=== PATIENT | female | born 1950 ===

== ENCOUNTER 2018-03-12 14:55 | Outpatient (REF) | payer MEDICARE, MEDICAID, SELFPAY ==
[2018-03-12 21:33] LABS: Anion Gap 10.6 mmol/L (3-11); BUN 15 mg/dL (7-18); CO2 24.4 mmol/L (21.0-32.0); CREATININE 0.69 mg/dL (0.55-1.02); Calcium 9.1 mg/dL (8.5-10.1); Chloride 103 mmol/L (98-107); Glucose 98 mg/dL (70-100); Potassium 4.1 mmol/L (3.5-5.1); Sodium 138 mmol/L (136-145)
== END 2018-03-12 14:56 ==
LOC: NCHCN 14:55
PROVIDERS: PCP Internal Medicine; Visit Provider Registered Nurse
DX: I10 Essential (primary) hypertension (principal)
CPT/HCPCS: 80048

== ENCOUNTER 2019-09-21 13:17 | Outpatient (REF) | payer MEDICARE, MEDICAID, SELFPAY ==
[2019-09-21 21:54] LABS: HCT 40.9 % (36.0-46.0); HGB 13.7 g/dL (12.0-15.5); Mean Corp. HGB Concentration 33.5 g/dL (32.0-36.0); Mean Corpuscular Hemoglobin 29.7 pg (27.0-33.0); Mean Corpuscular Volume 88.7 fL (80-95); Mean Platelet Volume 9.8 fL (8.0-11.0); Platelet Count 410 x1000/uL (130-400); RBC 4.61 m/cumm (4.00-5.20); White Blood Cell Count 7.77 k/cumm (4.4-10.8)
[2019-09-21 22:12] LABS: ALT 19 U/L (14-59); AST 19 U/L (15-37); Albumin 3.7 g/dL (3.4-5.0); Alkaline Phosphatase 118 U/L (46-116); Anion Gap 8.8 mmol/L (3-11); BUN 18 mg/dL (7-18); Bilirubin, Total 0.3 mg/dL (0.2-1.0); CO2 27.2 mmol/L (21.0-32.0); CREATININE 0.67 mg/dL (0.55-1.02); Chloride 104 mmol/L (98-107); Glucose 97 mg/dL (74-106); NT-proBNP 138 pg/mL (<300); Potassium 4.1 mmol/L (3.5-5.1); Sodium 140 mmol/L (136-145); TSH 1.86 uIU/mL (0.36-3.74); Total Protein 7.6 g/dL (6.4-8.2)
== END 2019-09-21 13:37 ==
LOC: NCHCN 13:17
PROVIDERS: PCP Internal Medicine; Visit Provider Registered Nurse
DX: I10 Essential (primary) hypertension (principal); R06.02 Shortness of breath
CPT/HCPCS: 80053; 85027; 83880; 84443

== ENCOUNTER 2019-10-02 20:29 | Outpatient (REF) | payer MEDICARE, MEDICAID, SELFPAY ==
[2019-10-02 21:06] LABS: Calculated LDL 252 mg/dL (<100); Cholesterol 338 mg/dL (<200); HDL Cholesterol 51 mg/dL (40-60); Triglyceride 178 mg/dL (<150)
== END 2019-10-02 20:49 ==
LOC: NCHCN 20:29
PROVIDERS: PCP Internal Medicine; Visit Provider Registered Nurse
DX: E66.9 Obesity, unspecified (principal)
CPT/HCPCS: 80061

== ENCOUNTER 2019-11-19 11:45 | Outpatient (REF) | payer MEDICARE, MEDICAID, SELFPAY ==
[2019-11-19 20:37] LABS: Anion Gap 6.5 mmol/L (3-11); BUN 12 mg/dL (7-18); CO2 29.5 mmol/L (21.0-32.0); CREATININE 1.07 mg/dL (0.55-1.02); Calcium 9.1 mg/dL (8.5-10.1); Calculated LDL 160 mg/dL (<100); Chloride 107 mmol/L (98-107); Cholesterol 223 mg/dL (<200); Estimated GFR 50.84 (mL/min/1.73m2); Glucose 88 mg/dL (74-106); HDL Cholesterol 41 mg/dL (40-60); Potassium 4.6 mmol/L (3.5-5.1); Sodium 143 mmol/L (136-145); Triglyceride 114 mg/dL (<150)
== END 2019-11-19 12:05 ==
LOC: NCHCN 11:45
PROVIDERS: PCP Internal Medicine; Visit Provider Registered Nurse
DX: E78.5 Hyperlipidemia, unspecified (principal); I10 Essential (primary) hypertension
CPT/HCPCS: 80048; 80061